=== PATIENT | female | born 1950 | race Caucasian/White ===

== ENCOUNTER 2018-08-24 08:25 | Inpatient (IN) | payer BC, MEDICARE | END 2018-08-26 17:45 | LOC: DAHIP 08:25 → 4BH 17:44 | PROC: 0SR904A Replacement of Right Hip Joint with Ceramic on Polyethylene Synthetic Substitute, Uncemented, Open Approach (ICD-10-PCS; principal; 2018-08-24 12:45) | DX: M16.11 Unilateral primary osteoarthritis, right hip (principal) ==